=== PATIENT | male | born 1995 | race Caucasian/White ===

== ENCOUNTER → 2018-08-08 | Outpatient (CLI) | payer BC ==
--- NOTE | 2018-08-08 10:39 | Diagnostic Imaging Report ---
INDICATION: Erectile dysfunction and elevated testosterone. FINDINGS: Right testicle measures 4.6 x 2.2 x 3.5 cm and the left testicle measures 4.6 x 2.3 x 3.1 cm. Both testes demonstrate homogeneous echotexture. No discrete testicular mass is identified. There is blood flow to both testes. Epididymides are unremarkable apart from a cyst involving the left epididymal head approximately 14 mm in size. No hydrocele or varicocele is identified. IMPRESSION: 1. No evidence of testicular mass or vascular compromise. 2. Left epididymal cyst. Dictated by: Dictated on workstation # [id number]
== END ==
LOC: RAD 09:08
PROVIDERS: ATTEND Nurse Practitioner Family
DX: N50.3 Cyst of epididymis (principal); E29.1 Testicular hypofunction; N52.9 Male erectile dysfunction, unspecified
CPT/HCPCS: 76870

== ENCOUNTER → 2019-12-09 | Outpatient (CLI) | payer BC ==
--- NOTE | 2019-12-09 16:45 | Diagnostic Imaging Report ---
EXAMINATION: Magnetic resonance imaging of the right knee without intravenous contrast. DATE: December 09, 2019. COMPARISON: None. INDICATION: 24-year-old male, right knee pain. TECHNIQUE: Multiplanar, multisequence non contrast enhanced MR imaging was accomplished. FINDINGS: MENISCI: The medial meniscus is intact. The lateral meniscus is intact. LIGAMENTS AND TENDONS: The anterior and posterior cruciate ligaments are intact. There is a complete versus near complete tear of the superficial component of the medial collateral ligament complex with prominent adjacent soft tissue edema. The iliotibial band, mid third lateral capsular ligament, fibular collateral ligament, biceps femoris tendon and conjoined tendon are intact. The quadriceps tendon and patella ligament are intact. JOINT: The articular cartilage surfaces are intact. There is no knee joint effusion, prominent synovitis, or intra-articular body. BONE: There is unremarkable bone marrow signal. Specifically, negative for fracture, osteomyelitis, osteonecrosis, or marrow replacing process. BURSAE AND SOFT TISSUES: There is no De Anda's cyst. IMPRESSION: 1. Complete or near complete tear of the superficial component of the medial collateral ligament complex. 2. Intact menisci and cruciate ligaments. 3. No acute fracture, bone contusion, or evidence of osteonecrosis. 4. Intact articular cartilage. No knee joint effusion. Dictated by: Dictated on workstation # [id number]
== END ==
LOC: RAD 14:42
PROVIDERS: ATTEND Nurse Practitioner
DX: S83.411A Sprain of medial collateral ligament of right knee, initial encounter (principal); S83.221A Peripheral tear of medial meniscus, current injury, right knee, initial encounter
CPT/HCPCS: 73721